=== PATIENT | male | born 1975 | race Caucasian/White ===

== ENCOUNTER 2023-04-05 16:01 | Day surgery (SDC) | payer OTHER ==
[2023-04-05] MEDS ORDERED: Depo-Medrol 40 MG/ML IM ONE (16:02)
[2023-04-05] MEDS ORDERED: Sodium Chloride 0.9(Preservative Free) 10 ML IJ ONE (16:02)
[2023-04-05] MEDS ORDERED: LIDOCAINE HCL 1% 50 MG/5 ML VL PF IJ ONE (16:02)
[2023-04-05] MEDS ORDERED: DIPRIVAN 200 MG/20 ML IV ONE ×2 (16:53→17:12)
[2023-04-05] MEDS ORDERED: Lactated Ringers 1,000 ML IV ONE (16:57)
--- NOTE | 2023-04-06 15:08 | XRAY ---
28 seconds of fluoroscopy was used in surgery for a lumbar BECCA.
--- NOTE | 2023-04-06 17:33 | XRAY ---
Indication: Lumbar BECCA. Intraoperative fluoroscopy provided for 28 seconds. 2 digital spot image submitted for interpretation demonstrates posterior needle tip projecting posterior to lumbosacral interspace. Small amount of contrast injected for needle tip placement. Correlate with intraoperative findings/report.
== END 2023-04-05 17:30 | disposition home or self-care (01) ==
LOC: SDC-PAIN 16:01
PROVIDERS: ATTEND Psychiatry & Neurology Pain Medicine
DX: M54.16 Radiculopathy, lumbar region (principal)
CPT/HCPCS: 62323; 72100; 77003; J1030; J2001; J2704; Q9966